=== PATIENT | female | born 2000 | race Two or more races ===

== ENCOUNTER 2022-12-10 06:36 | Emergency (ER) | payer OTHER ==
[~2022-12-10] VITALS: Ht 170.2 cm; Wt 61.2 kg
[2022-12-10 07:06] VITALS: BP 127/73
[2022-12-10] MEDS ORDERED: TDAP [DIPH/PERTUSSIS/TET] 0.5 ML VIAL IM ONE (07:30)
== END 2022-12-10 07:52 | disposition home or self-care (01) ==
LOC: ER 06:55
DX: S31.811A Laceration without foreign body of right buttock, initial encounter (principal); X58.XXXA Exposure to other specified factors, initial encounter; Y93.89 Activity, other specified; Y92.89 Other specified places as the place of occurrence of the external cause; Y99.8 Other external cause status
CPT/HCPCS: 99282; J7030

== ENCOUNTER 2023-08-24 02:25 | Emergency (ER) | payer OTHER ==
[~2023-08-24] VITALS: Ht 170.2 cm; Wt 59.0 kg
[2023-08-24] MEDS ORDERED: AMOX/CLAVULANATE 875 MG TABLET ONE (03:59)
[2023-08-24] MEDS ORDERED: HYDROCODONE/APAP 5/325MG TABLET ONE (03:59)
[2023-08-24] MEDS ORDERED: AMOX/CLAVULANATE 875 MG TABLET PO ONE (04:00)
[2023-08-24] MEDS ORDERED: HYDROCODONE/APAP 5/325MG TABLET PO ONE (04:00)
[2023-08-24] MEDS ORDERED: dexaMETHasone SOD PHOSPHATE 4 MG/ML VIAL IM ONE (04:00)
[2023-08-24] MEDS ORDERED: AMOX-430 PO (04:04)
[2023-08-24] MEDS ORDERED: IBUP-1955 PO (04:05)
[2023-08-24 04:09] VITALS: BP 115/72; TEMP 98.4; O2SAT 100
== END 2023-08-24 04:09 | disposition home or self-care (01) ==
LOC: ER 02:28
DX: J02.9 Acute pharyngitis, unspecified (principal); H92.02 Otalgia, left ear; Z60.2 Problems related to living alone
CPT/HCPCS: 99283; 96372; J1100